=== PATIENT | female | born 1995 ===

== ENCOUNTER 2019-08-20 03:16 | Emergency (ER) | payer BC, OTHER ==
--- OUTSIDE RECORDS SUMMARY | 2019-08-20 03:30 | XMS REPORT | Continuity of Care Document ---
:1995 External Reference #:[id number] Author Name Cirilo Peralta DO FAC (transmitted by agent of provider Renetta Nelson) Address [address] [place] [id number] Care Team Providers Name Role Phone Leila Stephens M.D. - Family Medicine Care Team Information Residential Instructor Problems Description No Information Available Social History Type Date Description Comments Sex Unknown Tobacco Use Start: Unknown Never Smoked Cigarettes Smoking Status Reviewed: 07/25/19 Never Smoked Cigarettes ETOH Use Occasionally consumes alcohol Tobacco Use Start: Unknown Patient has never smoked Recreational Drug Use Denies Drug Use Exercise Type/Frequency Exercises rarely Allergies, Adverse Reactions, Alerts Description No Known Drug Allergies Medications Active Medications SIG Qnty Indications Ordering Date Provider Ibuprofen 200 400-600mg Unknown 200mg Tablets every 6 hours as needed for pain. Dexmethylphenidate ER 20MG 1 Cap PO qd Unknown (prn) Mirena (52 MG) Unknown 20mcg/24HR IUD Immunizations Description No Information Available Vital Signs Date Vital Result Comment 07/25/2019 10:47am Height 66.50 inches 5'6.50" Weight 160.00 lb no shoes Heart Rate 77 /min BP Systolic Sitting 128 mmHg lue reg cuff BP Diastolic Sitting 74 mmHg lue reg cuff BP Systolic Standing 130 mmHg lue reg cuff BP Diastolic Standing 74 mmHg lue reg cuff Respiratory Rate 12 /min BMI (Body Mass Index) 25.4 kg/m2 Ejection Fraction none 10/11/2018 9:18am Height 66.50 inches 5'6.50" Weight 160.38 lb Heart Rate 62 /min BP Systolic 110 mmHg BP Diastolic 60 mmHg Body Temperature 97.7 F O2 % BldC Oximetry 98 % BMI (Body Mass Index) 25.5 kg/m2 Results Description No Information Available Procedures Date Code Description Status 07/25/2019 96125 EKG Tracing & Interpretation Completed Medical Devices Description No Information Available Encounters Description No Information Available Assessments Date Code Description Provider 07/25/2019 R00.2 Palpitations Cirilo Peralta DO FACC Plan of Treatment Future Appointment(s):08/07/2019 1:00 pm - Traveling ECHO 1 at [facility]07/25/2019 - Cirilo Peralta DO FACCR00.2 PalpitationsNew Orders:Echocardiogram, Ordered: 07/25/19[facility] , Ordered: 07/25/19Comments:As we discussed, you are going to wear a heart monitor to try to "capture" one of these symptom episodes. If there is a heart arrhythmia such as SVT or extra/premature heart beats such as PAC or PVC, you can try taking a beta-harrison to prevent these (such as metoprolol or atenolol) .If there are no heart arrhythmias noted during symptoms, then the heart is not causing these episodes and no further cardiac evaluation or treatment would be needed.Follow up:please arrange eliud amador f/u prn Functional Status Description No Information Available Mental Status Description No Information Available Referrals Description No Information Available
--- OUTSIDE RECORDS SUMMARY | 2019-08-20 03:30 | XMS REPORT | Continuity of Care Document ---
:1995 External Reference #:[id number] Author Name Cheyenne Tran Care Team Providers Name Role Phone Leila Stephens M.D. 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 Immunizations Description No Information Available Vital Signs Date Vital Result Comment 10/11/2018 9:18am Height 66.50 inches 5'6.50" Weight 160.38 lb Heart Rate 62 /min BP Systolic 110 mmHg BP Diastolic 60 mmHg Body Temperature 97.7 F O2 % BldC Oximetry 98 % BMI (Body Mass Index) 25.5 kg/m2 Results Description No Information Available Procedures Description No Information Available Medical Devices Description No Information Available Encounters Description No Information Available Assessments Description No Information Available Plan of Treatment 10/11/2018 - Rosalinda Marker, RPA-CZ00.00 Encntr for general adult medical exam w /o abnormal [id number] PalpitationsFollow up:2 weeks with holter pyblwroM89.3 Encounter for screening for infections with a predominantly Functional Status Description No Information Available Mental Status Description No Information Available Referrals Description No Information Available
[2019-08-20 03:57] VITALS: BP 120/78
--- NOTE | 2019-08-20 04:57 | ED ---
HPI Cardiac - HPI Summary HPI Summary: Patient is a 24 y/o F presenting to [facility] with complaints of CP and palpitations. She states that she has been experiencing palpitations over the past few months. Episodes of palpitations are characterized as pounding and racing, patient states that she will feel these palpitations in her throat. She notes no aggravating factors and states that episodes will onset randomly and with varying frequency, sometimes occurring multiple times in one day and other times once a week. Palpitations will last 5-10 seconds. She currently has an event monitor and is awaiting report. This evening, while patient was lying in bed, she had an episodes of sharp CP with palpitations. CP lasted 2-3 seconds and resolved. She also notes that she had subsequent onset of back pain, BUE and facial numbness, and dizziness which have since resolved as well. Patient was concerned as she has not experienced CP with her palpitations previously. She denies Hx of syncope. LNMP was around 1-2 weeks ago, IUD in place. Home medications and allergies are reviewed. - History of Current Complaint Chief Complaint: EDChestWallPain Stated Complaint: RAPID HR PER PT Time Seen by Provider: 08/20/19 03:32 Hx Obtained From: Patient Onset/Duration: Resolved Timing: Intermittent, Lasting Seconds Current Severity: None Pain Intensity: 0 Pain Scale Used: 0-10 Numeric Character: Fast, Pounding, Sharp/Stabbing Aggravating Factor(s): Nothing Associated Signs and Symptoms: Positive: Chest Pain, Numbness, Dizziness, Palpitations, Back Pain - Allergy/Home Medications Allergies/Adverse Reactions: Allergies Allergy/AdvReac Type Severity Reaction Status Date / Time No Known Allergies Allergy Verified 08/20/19 03:53 Home Medications: Home Medications NK [No Home Medications Reported] 08/20/19 [History Confirmed 08/20/19] PMH/Surg Hx/FS Hx/Imm Hx Sensory History: Denies: Hx Legally Blind, Hx Deafness Opthamlomology History: Denies: Hx Legally Blind EENT History: Denies: Hx Deafness Infectious Disease History: No Infectious Disease History: Denies: Traveled Outside the [place] in Last 30 Days - Family History Known Family History: Negative: Blood Disorder - Social History Alcohol Use: Rare Substance Use Type: Reports: None Smoking Status (MU): Never Smoked Tobacco Review of Systems Positive: Palpitations, Chest Pain Musculoskeletal: Other - positive - back pain Neurological/Mental Status: Other - positive - dizziness Positive: Numbness All Other Systems Reviewed And Are Negative: Yes Physical Exam - Summary Physical Exam Summary: Appearance: Well-appearing, Well-nourished, lying in bed comfortably Skin: Warm, dry, no obvious rash Eyes: sclera anicteric, no conjunctival pallor ENT: mucous membranes moist, pharynx appears normal Neck: Supple, nontender Respiratory: Clear to auscultation, no signs of respiratory distress Cardiovascular: Normal S1, S2. No murmurs. Normal distal pulses in tibial and radial bilaterally. Abdomen: Soft, nontender, normal active bowel sounds present Musculoskeletal: Normal, Strength/ROM Intact Neurological: A&Ox3, awake and alert, mentation is normal, speech is fluent and appropriate Psychiatric: affect is normal, does not appear anxious or depressed Triage Information Reviewed: Yes Vital Signs On Initial Exam: Initial Vitals Temp Pulse Resp BP Pulse Ox 98.6 F 68 15 123/84 100 08/20/19 03:20 08/20/19 03:20 08/20/19 03:20 08/20/19 03:20 08/20/19 03:20 Vital Signs Reviewed: Yes Procedures - Sedation Patient Received Moderate/Deep Sedation with Procedure: No Diagnostics - Vital Signs Vital Signs Temp Pulse Resp BP Pulse Ox 08/20/19 03:54 98.5 F 70 14 120/78 99 08/20/19 03:20 98.6 F 68 15 123/84 100 - Laboratory Lab Statement: Any lab studies that have been ordered have been reviewed, and results considered in the medical decision making process. Disposition - Course Course Of Treatment: Patient is a 24 y/o F presenting to [facility] with complaints of CP and palpitations. She states that she has been experiencing palpitations over the past few months. Episodes of palpitations are characterized as pounding and racing, patient states that she will feel these palpitations in her throat. She notes no aggravating factors and states that episodes will onset randomly and with varying frequency, sometimes occurring multiple times in one day and other times once a week. Palpitations will last 5-10 seconds. She currently has an event monitor and is awaiting report. This evening, while patient was lying in bed, she had an episodes of sharp CP with palpitations. CP lasted 2-3 seconds and resolved. She also notes that she had subsequent onset of back pain, BUE and facial numbness, and dizziness which have since resolved as well. Patient was concerned as she has not experienced CP with her palpitations previously. Physical exam was unremarkable. Patient was discharged at home and advised to follow up on cardiac rhythm monitor. She will follow up with PCP. - Diagnoses Provider Diagnoses: Chest pain, Palpitations Discharge ED - Sign-Out/Discharge Documenting (check all that apply): Patient Departure - discharge - Discharge Plan Condition: Good Disposition: HOME Patient Education Materials: Chest Pain (ED), Heart Palpitations (ED) Referrals: Rosalinda Pina PA [Primary Care Provider] - Additional Instructions: Follow through on the heart rhythm monitor, but your history of chest pain tonight does not worry me terribly. You can go about your normal activities. - Billing Disposition and Condition Condition: GOOD Disposition: Home - Attestation Statements Document Initiated by Adrienne: Yes Documenting Scribe: VERNELL MCCARTHY Provider For Whom Adrienne is Documenting (Include Credential): MESERET LU MD Scribe Attestation: VERNELL Esquivel, scribed for MESERET LU MD on 08/23/19 at 2134. Scribe Documentation Reviewed: Yes Provider Attestation: The documentation as recorded by the VERNELL hart accurately reflects the service I personally performed and the decisions made by MESERET condon MD Status of Scribe Document: Viewed
== END 2019-08-20 03:54 | disposition home or self-care (01) ==
LOC: ED 03:16
DX: R07.9 Chest pain, unspecified (principal); R00.2 Palpitations
CPT/HCPCS: 99282